=== PATIENT | female | born 1930 | race Caucasian/White ===

== ENCOUNTER 2016-10-28 11:15 | Observation (INO) | payer MEDICARE ==
[~2016-10-28] VITALS: Ht 152.4 cm; Wt 93.1 kg
[~2016-10-28 11:15] MED LIST: ATOR1TAB19 PO; FURO40TA2 PO; INDE80CA PO; NEUR100C PO; PRAD150C PO; PROA1AER INH; REST0.05 OU; TRAZ100T4 PO; TYLE325T5 PO; VALS1TAB46 PO; VITA100066 PO; VITMTA PO; VYTO10TA18 PO; ZOLO100T PO; ZOLO50TA PO
[2016-10-28 11:56] LABS: BASO % 0.3 % (0.0-1.0); EOS # 0.1 K/mm3 (0.0-0.50); EOS % 1.8 % (0.0-3.0); LARGE UNSTAINED CELL # 0.2 K/mm3 (0.0-0.4); LARGE UNSTAINED CELL % 5.7 % (0.0-4.0); MEAN CORPUSCULAR HEMOGLOBIN 32.1 pg (27.0-33.0); MEAN CORPUSCULAR HGB CONC 33.2 g/dl (32.0-36.5); MEAN CORPUSCULAR VOLUME 96.6 fl (80.0-96.0); MONO # 0.6 K/mm3 (0.0-0.8); MONO % 15.8 % (0.0-5.0); NEUTROPHILS # 2.1 K/mm3 (1.8-7.7); NEUTROPHILS % 55.4 % (36.0-66.0); PLATELET COUNT, AUTOMATED 152 k/mm3 (150-450); RED CELL DISTRIBUTION WIDTH 15.2 % (11.5-14.5); WHITE BLOOD COUNT 3.7 K/mm3 (4.0-10.0)
[2016-10-28 11:59] LABS: CALCIUM LEVEL 8.1 MG/DL (8.8-10.2); CREATININE FOR GFR 1.32 MG/DL (0.55-1.02); GLOMERULAR FILTRATION RATE 40.4 (>32)
[2016-10-28 12:42] LABS: INR 1.29
--- NOTE | 2016-10-28 12:56 | REP ---
Clinical: Visual disturbances. Comparison: 09/18/2015 . Findings: Age-related atrophy and microvascular ischemic changes are appreciated. The ventricles and sulci are symmetric. Reid-white differentiation is maintained. There is no evidence for acute intracranial hemorrhage, mass/mass effect, pathology or infarction. No extra-axial fluid collection. Calvarium is intact. Paranasal sinuses and mastoid air cells are clear. Impression: Age related atrophy and microvascular ischemic changes. No acute intracranial hemorrhage, infarction, or mass/mass effect. Signed by Nba Langston MD 10/28/2016 12:47 P
--- NOTE | 2016-10-28 13:02 | REP ---
Clinical: cerebrovascular accident . Comparison: 06/02/2016 . Findings: The mediastinum and cardiac silhouette are stable and within normal limits for portable technique. The lung enriquez are clear without acute consolidation, effusion, or pneumothorax. Skeletal structures are intact. Impression: Normal portable chest x-ray Signed by Nba Langston MD 10/28/2016 12:53 P
[2016-10-28] MEDS ORDERED: BISACODYL 10 MG SUPP PR PRN (13:30)
[2016-10-28] MEDS ORDERED: ONDANSETRON 4MG/2ML VIAL (J2405) IV PRN (13:30)
[2016-10-28] MEDS ORDERED: POTA10CA PO (14:18)
[2016-10-28] MEDS ORDERED: ELIQ2.5T PO (14:18)
[2016-10-28] MEDS ORDERED: ATOR1TAB19 PO (14:18)
[2016-10-28] MEDS ORDERED: CALC600T57 PO (14:19)
[2016-10-28] MEDS ORDERED: PROP80CA PO (14:20)
[2016-10-28] MEDS ORDERED: ALBUTEROL 90 MCG/ACT 8GM HFA INHALER INH PRN (14:30)
--- NOTE | 2016-10-28 14:56 | HPEPDOC ---
Medical History and Physical Date of Admission Oct 28, 2016 at 13:17 History and Physical [facility] CHIEF COMPLAINT: Blurry vision, leg weakness HISTORY OF PRESENT ILLNESS: Patient is a 86-year-old female with medical history significant for atrial fibrillation, hypertension who presents after an event of blurry vision, lower extremity weakness. Patient states that approximately 9:30 this morning while she was awake in the bathroom, using the bathroom her head began to feel awful, her vision went blurry, out of focus and she felt like she could not move her legs. When this occurred she pulled the assist steele located in her bathroom. Her neighbors came over to help her. Her neighbors called her daughter. Her daughter came over in approximately 15 minutes. By the time her daughter was over she says that her symptoms had started to improve. Patient's daughter called the ambulance and she was brought in to emergency department for further evaluation. Patient says that she is continuing to have a minimal amount of blurry vision in that her legs feel back to normal. Patient does have a known history of atrial fibrillation but has never had events like this before. ALLERGIES: Levaquin, Requip, Ramipril PAST MEDICAL HISTORY: Asthma, atrial fibrillation, GI bleed, dyslipidemia, hypertension, neuralgia, sleep apnea with CPAP, hears music in her ears (hears full songs), carpal tunnel syndrome PAST SURGICAL HISTORY: Right knee surgery SOCIAL HISTORY: Patient denies tobacco or recreational drug use. She drinks alcohol 1-2 times per week. She lives in a halfway community but functions independently. CODE STATUS: DNR REVIEW OF SYSTEMS: Constitutional: denies fevers, chills, night sweats, recent weight gain/loss HEENT: Head: Positive for head not feeling right, feeling lightheaded. Eyes: Positive for blurry vision. Ears: Positive for chronic hearing loss. Nose: Positive for postnasal drip, denies sinus pain or pressure, rhinorrhea. Throat: denies sore throat, cough, difficulty swallowing Cardiovascular: denies chest discomfort/pain, palpitations Respiratory: denies shortness of breath, difficulty breathing Gastrointestinal: denies nausea, vomiting, diarrhea, constipation, abdominal pain, melena, hematochezia : denies dysuria, hematuria Musculoskeletal: Positive for resolved lower extremity weakness, pain in her left leg last night which has resolved Neurological: Positive for chronic numbness in her hands (carpal tunnel syndrome ) Lymphatics: denies palpable lymph nodes or swollen glands Integumentary: denies any cuts, rashes, bruises Endocrine: denies polyuria, polydipsia. PHYSICAL EXAMINATION: Vitals: Temperature 97.7, pulse 76, blood pressure 154/71, pulse ox 93% on room air General: Patient awake in stretcher, alert and oriented, verbal and able to answer questions appropriately. She does not appear to be in any acute distress HEENT: Head: normocephalic, atraumatic. Eyes: pupils equally reactive to light , conjunctiva are pink, sclera are nonicteric. Throat: buccal mucosa is pink and moist with no lesions in the oropharynx Respiratory: clear to auscultation bilaterally with no wheezes, rales, or rhonchi. Cardiovascular: Irregularly irregular rate and rhythm. No murmurs, rubs, clicks or gallops Abdomen: soft, nontender, nondistended, no hepatosplenomegaly appreciated. Bowel sounds present. Extremities: 5/5 strength in upper and lower extremities bilaterally, no swelling in either lower extremity bilaterally Neurological: sensation intact and symmetrical in upper and lower extremities bilaterally Integumentary: skin free from rashes, lesions, abrasions Vascular: pulses palpable and symmetrical in upper and lower extremities bilaterally LABORATORY DATA: CBC: White blood cells 3.2, hemoglobin and hematocrit 13.6/41.0, platelets 152 Chemistry: Sodium 141, potassium 4.0, chloride 101, carbon dioxide 32, BUN 31, creatinine 1.3 to, glucose 113, calcium 8.1 Cardiac marker panel: Total creatinine kinase 60, CK-MB 1.0, CK-MB relative index 1.66, troponin I <0.02 Coagulation: PT 16.2, INR 1.29 ELECTROCARDIOGRAM: Atrial fibrillation at rate of 63 bpm RADIOLOGY: Head CT: Age-related atrophy and microvascular ischemic changes, no acute intracranial hemorrhage, infarction or mass effect Chest x-ray: Normal portable chest x-ray ASSESSMENT: Patient is a 86-year-old female, known history of atrial fibrillation who presents with transient ischemic attack. Patient will be admitted for further evaluation, observation. PLAN: #1 transient ischemic attack: Admit patient to PCU under care of Dr. Farah. Orders placed for echocardiogram, carotid ultrasound, brain MRI. Further consult by neurology if MRI shows any abnormalities. Patient will continue on Eliquis 2.5 mg by mouth twice a day. Neuro checks every 6 hours #2: Atrial fibrillation: Order placed for home dose of Eliquis 2.5 mg by mouth twice a day Hypertension: Order placed for home dose of Lasix 40 mg by mouth twice a day, propranolol 80 mg by mouth twice a day, valsartan 80 mg by mouth daily #3: Dyslipemia: Order placed for home dose of Lipitor 10 mg by mouth daily at bedtime #4: Asthma: Order placed for home dose of albuterol 2 puffs 4 times a day when necessary for shortness of breath #5: Neuralgia: Order placed for home dose of gabapentin 100 mg by mouth twice a day #6: Depression/anxiety: Order placed for home dose of Zoloft 150 mg by mouth daily at bedtime #7: Vitamin D deficiency: Order placed for home dose of vitamin D as an units by mouth daily #8: Constipation: Order placed for home dose of bisacodyl 10 mg daily KS when necessary for constipation, Senokot 1 tablet by mouth twice a day #9: Hypokalemia: Order placed for home dose of potassium 10 meqs by mouth daily #10: DVT prophylaxis: Patient will continue on home dose of Eliquis 2.5 mg by mouth twice a day My preceptor for this patient encounter was physically present in the building during the encounter and was fully available. As needed, all aspects of the patient interview, examination, medical decision making process, and medical care plan development were reviewed and approved by the preceptor. Preceptor is aware and concurs with the plan as stated in the body of this note and will attest to such by his/her cosignature. Vital Signs Temperature 97.7, pulse 76, blood pressure 154/71, pulse ox 93% on room air Home Medications Scheduled (Calcium + D3 600-200 mg-Unit) 1 Tab Tab 1 TAB PO DAILY Apixaban Base (Eliquis) 2.5 Mg Tab 2.5 MG PO BID Atorvastatin Calcium (Atorvastatin Calcium) 10 Mg Tab 10 MG PO QHS Cholecalciferol (Vitamin D) 1,000 Unit Tab 1,000 UNIT PO DAILY Furosemide (Furosemide) 40 Mg Tab 40 MG PO BID Gabapentin (Neurontin) 100 Mg Cap 100 MG PO BID Multivitamins *[facility]OCK[facility]* (Thera M Plus *[facility]OCK[facility]*) 1 Tab Tab 1 TAB PO DAILY Potassium Chloride (Klor-Con M10) 10 Meq Tabcr 10 MEQ PO DAILY Propranolol HCl (Propranolol HCl ER) 80 Mg Cap 80 MG PO BID Sertraline Hcl (Zoloft) 100 Mg Tab 150 MG PO QHS Valsartan (Valsartan) 80 Mg Tab 80 MG PO DAILY Scheduled PRN (Restasis) 0.05 % Emu 1 DROP OU BID PRN PRN DRY EYES Albuterol Sulfate (Proair Hfa) 108 Mcg/Act Aer 2 PUFFS INH QID PRN PRN SHORTNESS OF BREATH Allergies Coded Allergies: Ramipril (Verified Allergy, Intermediate, RASH, 12/10/12) Levofloxacin (Unverified Allergy, Mild, Upset Stomach, 04/13/15) Ropinirole (Unverified Allergy, Unknown, 04/13/15) ANGELA WILEY DO Oct 28, 2016 14:56
[2016-10-28 16:00] VITALS: BP 120/65
--- NOTE | 2016-10-28 16:35 | REP ---
Clinical: Transient ischemic attack. Technique: Noncontrast axial T1 and T2-weighted sequences along with sagittal T1 sequence, and diffusion weighted sequence. Comparison: 08/23/2012 Findings: Atrophy is appreciated along with periventricular leukomalacia and chronic microvascular ischemic changes. No acute intracranial hemorrhage, mass/mass effect, or infarction is appreciated. No extra-axial fluid collection is identified. Midbrain and midline structures are intact and symmetric. Orbits are normal. Visualized sinuses are clear. Impression: Age-related atrophy and chronic microvascular ischemic changes. No evidence for acute intracranial infarction, mass effect. Signed by Nba Langston MD 10/28/2016 04:27 P
--- NOTE | 2016-10-28 16:45 | EDDOCDS ---
Physician Documentation [facility] Name: Gifty Rodriguez Age: 86 yrs Sex: Female : 1930 Arrival Date: 10/28/2016 Time: 11:15 Bed 19 Private MD: Disposition: 10/28/16 13:05 Hospitalization ordered by Ana Cristina Lance for Inpatient Admission. Preliminary diagnosis is Transient cerebral ischemic attack, unspecified. - Bed requested for PCU. - Status is Inpatient Admission. ms2 - Condition is Stable. - Problem is an acute exacerbation. - Symptoms are unchanged. Historical: - Allergies: Levaquin; ropinirole; - Home Meds: 1. propranolol 60 mg Oral tab 1 tab 2 times per day (Last dose: 10/28/2016 06:00) 2. Eliquis 2.5 mg oral tab 1 tab 2 times per day (Last dose: 10/28/2016 06:00) 3. gabapentin 100 mg Oral cap one 2x daily (Last dose: 10/28/2016 06:00) 4. Sertraline 150 mg daily (Last dose: 10/28/2016 06:00) 5. Klor-Con 10 10 mEq Oral TbER 1 tab once daily (Last dose: 10/28/2016 06:00) 6. atorvastatin 10 mg oral tab 1 tab once daily (Last dose: 10/28/2016 06:00) 7. furosemide 40 mg Oral tab 1 tab 2 times per day (Last dose: 10/28/2016 06:00) 8. diclofenac -sodium gel 1%---4x daily to right shoulder 9. mutivitamins one daily (Last dose: 10/28/2016 06:00) 10. vitamins D (Last dose: 10/28/2016 06:00) 11. calcium 12. C-PAP ay HS 13. ventolin inhaler 14. restasis - PMHx: Asthma; atrial flutter; gi bleed; Hypercholesterolemia; Hypertension; neuralgia; Sleep Apnea w/ CPAP; - PSHx: right knee; - Social history: Smoking status: Patient states former smoker of tobacco. No barriers to communication noted, The patient speaks fluent [place]. - Family history: Not pertinent. - : The pt / caregiver states he / she is on anticoagulants: Eliquis Home medication list is obtained from the patient. - Exposure Risk Screening:: None identified. Vital Signs: 10/28 11:23 BP 148 / 67; Pulse 84; Resp 20 S; Temp 97.7(O); Pulse Ox 95% on R/A; Weight 89.36 kg / ms2 197.01 lbs; Height 5 ft. (152.40 cm); Pain 0/10; 11:23 BP 112 / 56; Pulse 65; Resp 20 S; Temp 97(T); Pulse Ox 94% on R/A; Pain 0/10; ms2 11:24 BP 148 / 67 (auto/); ms2 11:26 Pulse 62 MON; Resp 20 S; Pulse Ox 93% ; ms2 11:40 BP 141 / 67 (auto/); ms2 11:41 Pulse 68 MON; Resp 20 S; Pulse Ox 95% ; ms2 12:13 BP 154 / 71 Supine (auto/); ms2 12:14 Pulse 68 MON; Resp 20 S; Pulse Ox 93% ; ms2 12:14 BP 129 / 82 Sitting; Pulse 66; Resp 20 S; ms2 12:15 BP 129 / 69 Standing; Pulse 76; Resp 20 S; ms2 12:28 ms2 15:26 BP 104 / 70 (auto/); ms2 15:27 Pulse 68 MON; Resp 20 S; Pulse Ox 93% ; ms2 11:23 Body Mass Index 38.47 (89.36 kg, 152.40 cm) ms2 12:14 pt lightheaded with sitting up ms2 12:28 clinical rehab specialist aware of vs with sitting , etc. ms2 Visual Acuity: 11:57 Left Eye Visual acuity 20/50, ; Right Eye Visual acuity 20/30, ; Both Eyes Visual ms2 acuity 20/25; With Lenses; MDM: 11:23 Visual Acuity ordered. br1 11:35 IV Saline Lock ordered. br1 11:36 CBC with Diff Ordered. EDMS 11:36 Accucheck ordered. ttb 11:36 BMP Ordered. EDMS 12:14 CBC with Diff Reviewed. ke 12:14 BMP Reviewed. ke 12:14 Fingerstick Blood Sugar Reviewed. ke 12:16 CT Head Without Contrast Ordered. EDMS 12:29 PT/INR Ordered. EDMS 12:29 CIP Ordered. EDMS 12:29 Troponin Ordered. EDMS 12:30 Chest, 1 View Ordered. EDMS 12:30 ECG WITH READING ER PHYS+CARDIAG ordered. EDMS 12:52 Financial registration complete. mm15 13:00 PT/INR Reviewed. ke 13:00 CIP Reviewed. ke 13:00 Troponin Reviewed. ke 13:11 NO ADDED SALT+DIET ordered. EDMS 13:20 [facility] Payment Agreement was scanned into [employer] and attached to record. mm15 13:22 PHYSICAL THERAPY EVAL & TREAT ordered. EDMS 13:23 Admission / Observation Status ordered. EDMS 13:23 ECHOCARD,DOPPLER/COLOR FLOW ordered. EDMS 13:23 OTHER CUSTOM DIETS ordered. EDMS 14:18 MRI Brain without Contrast Ordered. EDMS 14:19 Duplex,carotid (complete) Ordered. EDMS Point of Care Testing: Blood Glucose: 11:35 Blood Glucose: 118 mg/dL; ttb 11:35 Blood Glucose: 118 mg/dL; ms2 Ranges: Signatures: Dispatcher [employer] EDTN Ilya Yates,RN RN ms2 José Miguel Kathleen, GAMING DEPARTMENT HEAD GAMING DEPARTMENT HEAD Bj Almaraz MD MD br1 Concepcion Gama RN RN ttb Gwen Garcia mm15 Veronica Beckett RN RN kaa The chart was reviewed and I authenticate all verbal orders and agree with the evaluation and treatment provided.Attachments: 13:20 [facility] Payment Agreement mm15 MTDD
--- NOTE | 2016-10-28 16:45 | EDDOCDS ---
Nurse's Notes [facility] Name: Gifty Rodriguez Age: 86 yrs Sex: Female : 1930 Arrival Date: 10/28/2016 Time: 11:15 Bed 19 Private MD: Diagnosis: Transient cerebral ischemic attack, unspecified Presentation: 10/28 11:19 Presenting complaint: EMS states: blurred vision since this am and head felt fuzzy ms2 --lasted for period of time---couldn't focus---and still can't per pt---no headache. Adult Sepsis Screening: The patient does not have new or worsening altered mentation. Patient's respiratory rate is less than 22. Systolic blood pressure is greater than 100. Patient has a qSOFA score of 0- Negative Sepsis Screen. Suicide/Homicide risk assessment- the patient denies having any suicidal and/or homicidal ideations and does not present with any other emotional, behavioral or mental health complaints. Status: Patient is not a customer service agent or dependent. Transition of care: patient was not received from another setting of care. 11:19 Acuity: ORALIA Level 3 ms2 11:19 Method Of Arrival: Ambulance ms2 11:25 Presenting complaint:. ms2 11:36 Presenting complaint: per daughter---when she got there pt unable to express self for a ms2 few seconds--seemed to daughter longer she was in the chair the more alert she became---no sickness lately. Triage Assessment: 11:30 General: Appears in no apparent distress, Behavior is cooperative, pleasant, daughtere ms2 with pt. Pain: Denies pain. The patient is triaged at the bedside. See Assessment in Nurses Notes section of ED record. Neurological: Level of Consciousness is awake, alert, obeys commands, Oriented to person, place, time. Respiratory: No deficits noted. Airway is patent Respiratory effort is even, unlabored, Respiratory pattern is regular, symmetrical. GI: Abdomen is non- distended obese. Derm: Skin is pink, warm & dry. Musculoskeletal: Range of motion intact in all extremities. Historical: - Allergies: Levaquin; ropinirole; - Home Meds: 1. propranolol 60 mg Oral tab 1 tab 2 times per day (Last dose: 10/28/2016 06:00) 2. Eliquis 2.5 mg oral tab 1 tab 2 times per day (Last dose: 10/28/2016 06:00) 3. gabapentin 100 mg Oral cap one 2x daily (Last dose: 10/28/2016 06:00) 4. Sertraline 150 mg daily (Last dose: 10/28/2016 06:00) 5. Klor-Con 10 10 mEq Oral TbER 1 tab once daily (Last dose: 10/28/2016 06:00) 6. atorvastatin 10 mg oral tab 1 tab once daily (Last dose: 10/28/2016 06:00) 7. furosemide 40 mg Oral tab 1 tab 2 times per day (Last dose: 10/28/2016 06:00) 8. diclofenac -sodium gel 1%---4x daily to right shoulder 9. mutivitamins one daily (Last dose: 10/28/2016 06:00) 10. vitamins D (Last dose: 10/28/2016 06:00) 11. calcium 12. C-PAP ay HS 13. ventolin inhaler 14. restasis - PMHx: Asthma; atrial flutter; gi bleed; Hypercholesterolemia; Hypertension; neuralgia; Sleep Apnea w/ CPAP; - PSHx: right knee; - Social history: Smoking status: Patient states former smoker of tobacco. No barriers to communication noted, The patient speaks fluent Kazakh. - Family history: Not pertinent. - : The pt / caregiver states he / she is on anticoagulants: Eliquis Home medication list is obtained from the patient. - Exposure Risk Screening:: None identified. Screenin:32 Screening information is obtained from the patient, family members. Fall risk: At risk ms2 due to age, cane and walker outside of apartment. Assistance ADL's: Requires assistance with housework, assistance is provided by cleaning lady once monthly. Abuse/DV Screen: The patient / caregiver reports he/she is: not in a situation that causes fear, pain or injury. Nutritional screening: low NA and fluid restriction. Advance Directives: Currently, there is a health care proxy, daughter- eron finley. There is an active DNR order but there is no copy available at this time. There is no living will. There is an active Power of Oim Architect, yes --see above. Advance directive information does not know if advance directives have been placed in a prior [facility] medical record. Further advance directive information is declined. home support is adequate. Assessment: 11:31 General: see triage assessment. ms2 12:30 General: Appears in no apparent distress, comfortable, daughter with pt. Neurological: ms2 No deficits noted. Cardiovascular:. Respiratory: No deficits noted. Derm: Skin is pink, warm & dry. 12:55 General: LOOKING AT BACK RECORDS BY ADMISSION PT DOES HAVE A HCP AND LW COMBINED NO ms2 SEPARATE DNR---DAUGHTER AWARE. 13:24 General: resident in to see pt. ms2 14:00 General: Appears in no apparent distress, comfortable, Behavior is cooperative. ms2 Neurological: No deficits noted. Cardiovascular: Rhythm is atrial flutter. Respiratory: No deficits noted. Derm: Skin is pink, warm & dry. 15:36 General: Appears in no apparent distress, comfortable, Behavior is cooperative. Pain: ms2 Denies pain. Neurological: Level of Consciousness is awake, alert, obeys commands. Cardiovascular: Rhythm is atrial flutter. Respiratory: Respiratory effort is even, unlabored. Derm: Skin is. 16:39 Adult Sepsis Screening: The patient does not have new or worsening altered mentation. ms2 Patient's respiratory rate is less than 22. Systolic blood pressure is greater than 100. Patient has a qSOFA score of 0- Negative Sepsis Screen. General: Appears in no apparent distress, comfortable, Behavior is cooperative, pleasant. General: Appears in no apparent distress, comfortable. Pain: Denies pain. Neurological: Level of Consciousness is awake, alert, obeys commands. Cardiovascular: Rhythm is atrial flutter. Respiratory: Airway is patent Respiratory effort is even, unlabored, Respiratory pattern is regular, symmetrical. GI: Abdomen is non- distended obese. Derm: Skin is pink, warm & dry. Musculoskeletal: Range of motion intact in all extremities. Vital Signs: 11:23 BP 148 / 67; Pulse 84; Resp 20 S; Temp 97.7(O); Pulse Ox 95% on R/A; Weight 89.36 kg; ms2 Height 5 ft. (152.40 cm); Pain 0/10; 11:23 BP 112 / 56; Pulse 65; Resp 20 S; Temp 97(T); Pulse Ox 94% on R/A; Pain 0/10; ms2 11:24 BP 148 / 67 (auto/); ms2 11:26 Pulse 62 MON; Resp 20 S; Pulse Ox 93% ; ms2 11:40 BP 141 / 67 (auto/); ms2 11:41 Pulse 68 MON; Resp 20 S; Pulse Ox 95% ; ms2 12:13 BP 154 / 71 Supine (auto/); ms2 12:14 Pulse 68 MON; Resp 20 S; Pulse Ox 93% ; ms2 12:14 BP 129 / 82 Sitting; Pulse 66; Resp 20 S; ms2 12:15 BP 129 / 69 Standing; Pulse 76; Resp 20 S; ms2 12:28 ms2 15:26 BP 104 / 70 (auto/); ms2 15:27 Pulse 68 MON; Resp 20 S; Pulse Ox 93% ; ms2 11:23 Body Mass Index 38.47 (89.36 kg, 152.40 cm) ms2 12:14 pt lightheaded with sitting up ms2 12:28 manager psychology aware of vs with sitting , etc. ms2 Vitals: 11:23 Log In Time N/A - ambulance arrival. ms2 Visual Acuity: 11:57 Left Eye Visual acuity 20/50, ; Right Eye Visual acuity 20/30, ; Both Eyes Visual ms2 acuity 20/25; With Lenses; ED Course: 11:17 Patient visited by Gissel Zapata, Naval Marine Engineer. deg 11:17 Ilya Yates,RN is Primary Nurse. deg 11:17 Patient moved to Waiting deg 11:17 Patient moved to 19 deg 11:19 Patient visited by Ilya Yates RN. ms2 11:23 Triage Initiated ms2 11:34 The patient / caregiver is instructed regarding the plan of care and ED course. Cardiac ms2 monitor on. Pulse ox on. NIBP on. 11:35 Inserted saline lock: 20 gauge in right antecubital area The patient tolerated the ms2 procedure well. No procedures done that require assistance. 11:37 BMP Sent. ttb 11:37 CBC with Diff Sent. ttb 11:57 Patient visited by Ilya Yates,TASHA. ms2 12:11 José Miguel Kathleen FNP is PHCP. ke 12:12 Patient visited by José Miguel Kathleen FNP. ke 12:12 Patient visited by José Miguel Kathleen FNP. ke 12:21 Patient visited by Ilya Yates,TASHA. ms2 12:31 The patient / caregiver is instructed regarding the plan of care and ED course. Cardiac ms2 monitor on. Pulse ox on. NIBP on. 12:31 IV is intact, is free of redness or swelling. ms2 12:31 Troponin Sent. ms2 12:31 CIP Sent. ms2 12:31 PT/INR Sent. ms2 12:51 Patient visited by José Miguel Kathleen FNP. ke 13:00 EKG done. (by ED staff). Reviewed by José Miguel BOLAND. ttb 13:05 NatalioAna Cristina is Hospitalizing Provider. ke 13:07 CT Head Without Contrast Returned. EDMS 13:07 Chest, 1 View Returned. EDMS 13:20 [facility] Payment Agreement was scanned into [employer] and attached to record. mm15 13:24 Patient visited by Ilya Yates RN. ms2 14:00 The patient / caregiver is instructed regarding the plan of care and ED course. Cardiac ms2 monitor on. Pulse ox on. NIBP on. Diet: Tolerated well. 14:00 IV is intact, is free of redness or swelling. ms2 15:37 The patient / caregiver is instructed regarding the plan of care and ED course. dc'd to ms2 go to MRI. 15:37 IV is intact, is free of redness or swelling. ms2 16:40 The patient / caregiver is instructed regarding the plan of care and ED course. Cardiac ms2 monitor on. Pulse ox on. NIBP on. 16:40 IV is intact, is free of redness or swelling. ms2 Point of Care Testing: Blood Glucose: 11:35 Blood Glucose: 118 mg/dL; ttb 11:35 Blood Glucose: 118 mg/dL; ms2 Ranges: Intake: 15:35 PO: 113.00ml (Milk); Total: 113.00ml. ms2 12:14 up to commode to void --required assistance ms2 15:35 up to BR to void and had BM ms2 Output: 12:14 Urine: 300.00ml (Voided); Total: 300.00ml. ms2 12:14 up to commode to void --required assistance ms2 15:35 up to BR to void and had BM ms2 Order Results: Lab Order: CBC with Diff; SPEC'M 10/28/16 11:33 Test: WHITE BLOOD COUNT; Value: 3.7; Range: 4.0-10.0; Abnormal: Below low normal; Units: K/mm3; Status: F Test: RED BLOOD COUNT; Value: 4.24; Range: 4.00-5.40; Units: M/mm3; Status: F Test: HEMOGLOBIN; Value: 13.6; Range: 12.0-16.0; Units: g/dl; Status: F Test: HEMATOCRIT; Value: 41.0; Range: 36.0-47.0; Units: %; Status: F Test: MEAN CORPUSCULAR VOLUME; Value: 96.6; Range: 80.0-96.0; Abnormal: Above high normal; Units: fl; Status: F Test: MEAN CORPUSCULAR HEMOGLOBIN; Value: 32.1; Range: 27.0-33.0; Units: pg; Status: F Test: MEAN CORPUSCULAR HGB CONC; Value: 33.2; Range: 32.0-36.5; Units: g/dl; Status: F Test: RED CELL DISTRIBUTION WIDTH; Value: 15.2; Range: 11.5-14.5; Abnormal: Above high normal; Units: %; Status: F Test: PLATELET COUNT, AUTOMATED; Value: 152; Range: 150-450; Units: k/mm3; Status: F Test: NEUTROPHILS %; Value: 55.4; Range: 36.0-66.0; Units: %; Status: F Test: LYMPH %; Value: 21.0; Range: 24.0-44.0; Abnormal: Below low normal; Units: %; Status: F Test: MONO %; Value: 15.8; Range: 0.0-5.0; Abnormal: Above high normal; Units: %; Status: F Test: EOS %; Value: 1.8; Range: 0.0-3.0; Units: %; Status: F Test: BASO %; Value: 0.3; Range: 0.0-1.0; Units: %; Status: F Test: LARGE UNSTAINED CELL %; Value: 5.7; Range: 0.0-4.0; Abnormal: Above high normal; Units: %; Status: F Test: NEUTROPHILS #; Value: 2.1; Range: 1.8-7.7; Units: K/mm3; Status: F Test: LYMPH #; Value: 1.0; Range: 1.5-4.5; Abnormal: Below low normal; Units: K/mm3; Status: F Test: MONO #; Value: 0.6; Range: 0.0-0.8; Units: K/mm3; Status: F Test: EOS #; Value: 0.1; Range: 0.0-0.50; Units: K/mm3; Status: F Test: BASO #; Value: 0.0; Range: 0.0-0.2; Units: K/mm3; Status: F Test: LARGE UNSTAINED CELL #; Value: 0.2; Range: 0.0-0.4; Units: K/mm3; Status: F Lab Order: BMP; SPEC'M 10/28/16 11:33 Test: GLUCOSE, FASTING; Value: 113; Range: 83-110; Abnormal: Above high normal; Units: MG/DL; Status: F Test: BLOOD UREA NITROGEN; Value: 31; Range: 7-18; Abnormal: Above high normal; Units: MG/DL; Status: F Test: CREATININE FOR GFR; Value: 1.32; Range: 0.55-1.02; Abnormal: Above high normal; Units: MG/DL; Status: F Test: GLOMERULAR FILTRATION RATE; Value: 40.4; Range: >32; Status: F Test: SODIUM LEVEL; Value: 141; Range: 136-145; Units: MEQ/L; Status: F Test: POTASSIUM SERUM; Value: 4.0; Range: 3.5-5.1; Units: MEQ/L; Status: F Test: CHLORIDE LEVEL; Value: 101; Range: 98-107; Units: MEQ/L; Status: F Test: CARBON DIOXIDE LEVEL; Value: 32; Range: 21-32; Units: MEQ/L; Status: F Test: ANION GAP; Value: 8; Range: 8-16; Units: MEQ/L; Status: F Test: CALCIUM LEVEL; Value: 8.1; Range: 8.8-10.2; Abnormal: Below low normal; Units: MG/DL; Status: F Test Note: ; Units are mL/min/1.73 m2 Chronic Kidney Disease Staging per NKF: Stage I & II GFR >=60 Normal to Mildly Decreased Stage III GFR 30-59 Moderately Decreased Stage IV GFR 15-29 Severely Decreased Stage V GFR <15 Very Little GFR Left ESRD GFR <15 on SPINDLE PLUMBER Lab Order: Fingerstick Blood Sugar; SPEC'M 10/28/16 11:24 Test: BEDSIDE GLUCOSE; Value: 118; Range: 83-110; Abnormal: Above high normal; Units: MG/DL; Status: F Test Note: ; RN Notified Lab Order: PT/INR; [facility] 10/28/16 11:33 Test: PROTHROMBIN TIME; Value: 16.2; Range: 12.3-14.5; Abnormal: Above high normal; Units: SECONDS; Status: F Test: INR; Value: 1.29; Status: F Test Note: ; THERAPUTIC HUMAN INR VALUES INDICATIONS NORMAL RANGES PROPHYLAXIS/TREATMENT OF: VENOUS THROMBOSIS 2.0-3.0 PULMONARY EMBOLISM 2.0-3.0 PREVENTION OF SYSTEMIC EMBOLISM FROM: TISSUE HEART VALVES 2.0-3.0 ACUTE MYOCARDIAL INFARCTION 2.0-3.0 VALVULAR HEART DISEASE 2.0-3.0 ATRIAL FIBRILLATION 2.0-3.0 MECHANICAL VALVES(HIGH RISK) 2.5-3.5 RECURRENT MYOCARDIAL INFARCTION 2.5-3.5 Lab Order: CIP; [facility] 10/28/16 11:33 Test: CPK CREATINE PHOSPHOKINASE; Value: 60; Range: 26-192; Units: U/L; Status: F Test: CK-MB VALUE MASS; Value: 1.0; Range: 0.0-3.6; Units: NG/ML; Status: F Test: MB/CK RELATIVE INDEX; Value: 1.66; Range: < OR =4; Status: F Test Note: ; DIAGNOSIS CRITERIA MMB ng/ml Relative Index (RI) NON-AMI < or = 5 N/A REID ZONE > 5 < or = 4 AMI > 5 > 4 Lab Order: Troponin; [facility] 10/28/16 11:33 Test: TROPONIN I; Value: < 0.02; Range: < 0.10; Units: NG/ML; Status: F Test Note: ; Troponin I Reference Interval for Solar Flow-Through LOCI: 99th Percentile= 0.00-0.045 ng/ml Risk Stratification: <= 0.10 ng/ml Decreased Risk for Adverse Clinical Events. 0.10-1.50 ng/ml Increased Risk for Adverse Clinical Events. Evaluation of additional criterion and/or repeat testing in 2-6 hours is suggested to rule out myocardial damage. >= 1.50 ng/ml Indicative of Myocardial Injury. Radiology Order: CT Head Without Contrast Test: CT Head Without Contrast REASON FOR EXAMINATION: vision change; Clinical: Visual disturbances.; ; Comparison: 09/18/2015 .; ; Findings:; Age-related atrophy and microvascular ischemic changes are appreciated. The; ventricles and sulci are symmetric. Reid-white differentiation is maintained.; There is no evidence for acute intracranial hemorrhage, mass/mass effect,; pathology or infarction. No extra-axial fluid collection. Calvarium is intact.; Paranasal sinuses and mastoid air cells are clear.; ; Impression:; Age related atrophy and microvascular ischemic changes.; No acute intracranial hemorrhage, infarction, or mass/mass effect.; ; ; Signed by; Nba Langston MD 10/28/2016 12:47 P; Radiology Order: Chest, 1 View Test: Chest, 1 View REASON FOR EXAMINATION: admit; Clinical: cerebrovascular accident .; ; Comparison: 06/02/2016 .; ; Findings:; The mediastinum and cardiac silhouette are stable and within normal limits for; portable technique. The lung enriquez are clear without acute consolidation,; effusion, or pneumothorax. Skeletal structures are intact.; ; Impression:; Normal portable chest x-ray; ; ; Signed by; Nba Langston MD 10/28/2016 12:53 P; Outcome: 13:05 Decision to Hospitalize by Provider. ke 15:38 Discharge Assessment: patient administered narcotics - no. The following High Risk ms2 Discharge criteria are identified: None. 15:39 CT Study completed. ms2 16:40 Admitted to PCU accompanied by nurse, accompanied by tech, via stretcher, on monitor, ms2 with chart. Condition: stable. Property :Personal belongings accompany Pt. 16:45 Patient left the ED. ms2 Signatures: Dispatcher [employer] EDMS Gissel Zapata, Naval Marine Engineer Unit deg Ilya Yates RN RN ms2 José Miguel Kathleen FNP FNP ke Conner, Teresa, RN RN darrylb Gwen Garcia mm15 Corrections: (The following items were deleted from the chart) 11:27 11:23 Resp 20bpm; Spontaneous; Temp 97.7F Oral; ms2 ms2 12:25 12:13 BP 154 / 71 Auto; ms2 ms2 12:30 12:21 Urine 300, (Voided), Output Total 300; Note:up to commode to void --required ms2 assistance---pt lightheaded momentarily with standing. ms2 12:30 12:14 BP 129 / 82 Sitting; Pulse 66bpm; Resp 20bpm; Spontaneous; ms2 ms2 16:39 11:23 BP 148 / 67; Pulse 84bpm; Resp 20bpm; Spontaneous; Pulse Ox 95% RA; Temp 97.7F ms2 Oral; 2.27 kg Reported; Height 1 ft. 97 in. Reported; BMI: 0.30; Pain 0/10; ms2 MTDD
--- NOTE | 2016-10-28 16:50 | REP ---
Clinical: Transient ischemic attack. Technique: Reid scale and color Doppler evaluation using linear high frequency transducer Findings: Two-dimensional reid scale and color images demonstrate normal arterial lumen with laminar flow with no appreciable narrowing. Color Doppler interrogation demonstrates normal arterial wave patterns and velocities with mild spectral broadening. Normal flow direction is appreciated in the left vertebral artery. RIGHT (cm/s) LEFT (cm/s) ICA peak systolic velocity 32.3 51.5 ICA diastolic velocity 5.7 16.0 ECA peak systolic velocity 95.7 78.2 CCA peak systolic velocity 78.0 75.3 ICA/CCA ratio 0.4 0.7 Impression: No hemodynamically significant areas of narrowing or stenosis appreciated. Based on set standards narrowing falls within the less than 50% range. Signed by Nba Langston MD 10/28/2016 04:42 P
[2016-10-28] MEDS: FUROSEMIDE 40 MG TAB PO SCH (17:48)
--- NOTE | 2016-10-28 18:08 | ECGEPIP ---
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 Electronically Signed On 10-28-2016 18:08:29 EST by Omid Yang
[2016-10-28 20:00] VITALS: BP 124/61
[2016-10-28] MEDS: APIXABAN 2.5 MG TAB (ELIQUIS) PO SCH (20:34)
[2016-10-28] MEDS: GABAPENTIN 100 MG CAP PO SCH (20:34)
[2016-10-28] MEDS: PROPRANOLOL 80 MG LA CAP PO SCH (20:34)
[2016-10-28] MEDS: SERTRALINE HCL 50 MG TAB PO SCH (20:34)
[2016-10-28] MEDS: ATORVASTATIN 10 MG TAB PO SCH (20:34)
[2016-10-28] MEDS: SENOKOT S TAB PO SCH (21:00)
[2016-10-29] VITALS (8 sets, daily range): BP systolic 108–175; BP diastolic 53–87
[2016-10-29 05:40] LABS: MEAN CORPUSCULAR HGB CONC 33.6 g/dl (32.0-36.5); MEAN CORPUSCULAR VOLUME 95.5 fl (80.0-96.0); PLATELET COUNT, AUTOMATED 138 k/mm3 (150-450); RED CELL DISTRIBUTION WIDTH 15.2 % (11.5-14.5); WHITE BLOOD COUNT 4.1 K/mm3 (4.0-10.0)
[2016-10-29 05:45] LABS: CREATININE FOR GFR 1.3 MG/DL (0.55-1.02); GLOMERULAR FILTRATION RATE 41.2 (>32); POTASSIUM SERUM 3.6 MEQ/L (3.5-5.1)
[2016-10-29 06:39] LABS: BASOPHILS 1 % (0-4); EOSINOPHILS 3 % (0-5)
[2016-10-29 06:40] LABS: GIANT PLATELETS 1+
[2016-10-29] MEDS: GABAPENTIN 100 MG CAP PO SCH ×2 (08:27→20:33)
[2016-10-29] MEDS: POTASSIUM CHLORIDE 10 MEQ SR TABLET PO SCH (08:27)
[2016-10-29] MEDS: SENOKOT S TAB PO SCH ×2 (08:27→20:33)
[2016-10-29] MEDS: VITAMIN D 1,000 INTERNATIONAL UNITS TABLET PO SCH (08:27)
[2016-10-29] MEDS: MULTIVITAMINS/MINERALS THERAP 1 TAB PO SCH (08:27)
[2016-10-29] MEDS: APIXABAN 2.5 MG TAB (ELIQUIS) PO SCH ×2 (08:27→20:33)
[2016-10-29] MEDS: VALSARTAN 80 MG TAB (DIOVAN) PO SCH (08:32)
[2016-10-29] MEDS: FUROSEMIDE 40 MG TAB PO SCH ×2 (08:33→16:21)
[2016-10-29] MEDS: PROPRANOLOL 80 MG LA CAP PO SCH ×2 (08:33→20:33)
--- NOTE | 2016-10-29 13:46 | IPNPDOC ---
Text Note Date of Service The patient was seen on 10/29/16. NOTE Subjective: Feeling well. No recurrent episodes. No CP/Palpitations/SOB. Objective: Vitals: (see below) General: No acute distress, laying comfortably in bed. HEENT: Moist mucous membranes. Neck: No JVD or lymphadenopathy Cardiac: RRR, No murmurs Pulm: Diminished breath sounds b/l bases. No wheezing, rhonchi Abd: NT/ND + BS Ext: No edema or cyanosis Neuro: Strength 5/5 BUE and BLE. CN 2-12 intact. Negative pronator drift. Negative Babinski. Baseline essential tremor. Labs (see below) Images: MRI Brain 10/29/16 Impression: Age-related atrophy and chronic microvascular ischemic changes. No evidence for acute intracranial infarction, mass effect. LE U/S 10/28/16 Impression: No hemodynamically significant areas of narrowing or stenosis appreciated. Based on set standards narrowing falls within the less than 50% range. Assessment/Plan 1. Pre-syncope - while sitting on the toilet. ? Vasovagal. Will maintain on telemetry. Echocardiogram pending. CE negative. Check orthostatics as pt is on lasix. 2. AF on Eliquis, follows with Dr. Randall 3. HLD on statin 4. Asthma on nebs 5. Neuropathy on gabapentin 6. Depression/axiety - cont home meds DVT prophy: On Eliquis PT eval Plan to d/c in the next 24 -48 hrs pending echocardiogram. VS,Fishbone, I+O VS, Fishbone, I+O Laboratory Tests 10/29/16 05:10 Calcium Level 8.0 L, Red Blood Count 4.11, Mean Corpuscular Volume 95.5, Mean Corpuscular Hemoglobin 32.0, Mean Corpuscular Hemoglobin Concent 33.6, Red Cell Distribution Width 15.2 H, Neutrophils (%) (Auto) , Lymphocytes (%) (Auto) , Monocytes (%) (Auto) , Eosinophils (%) (Auto) , Basophils (%) (Auto) , Neutrophils # (Auto) , Lymphocytes # (Auto) , Monocytes # (Auto) , Eosinophils # (Auto) , Basophils # (Auto) Vital Signs Date Time Temp Pulse Resp B/P Pulse Ox O2 Delivery O2 Flow Rate FiO2 10/29/16 12:00 97.1 59 18 138/65 94 Room Air I&O- Last 24 Hours up to 6 AM 10/29/16 06:00 Intake Total 420 ml Output Total 1300 ml Balance -880 ml MELVINA GUILLORY MD Oct 29, 2016 13:46
[2016-10-29] MEDS: SERTRALINE HCL 50 MG TAB PO SCH (20:32)
[2016-10-29] MEDS: ATORVASTATIN 10 MG TAB PO SCH (20:33)
[2016-10-30 04:47] VITALS: BP 148/71
[2016-10-30 05:37] LABS: MEAN CORPUSCULAR HEMOGLOBIN 30.3 pg (27.0-33.0); MEAN CORPUSCULAR HGB CONC 31.8 g/dl (32.0-36.5); MEAN CORPUSCULAR VOLUME 95.1 fl (80.0-96.0); PLATELET COUNT, AUTOMATED 151 k/mm3 (150-450); WHITE BLOOD COUNT 4.1 K/mm3 (4.0-10.0)
[2016-10-30 05:56] LABS: CALCIUM LEVEL 8.2 MG/DL (8.8-10.2); CREATININE FOR GFR 1.22 MG/DL (0.55-1.02); GLOMERULAR FILTRATION RATE 44.3 (>32); POTASSIUM SERUM 4.2 MEQ/L (3.5-5.1)
[2016-10-30 06:25] LABS: EOSINOPHILS 1 % (0-5)
[2016-10-30 06:26] LABS: ANISOCYTOSIS 1+
[2016-10-30 08:00] VITALS: BP 120/56
[2016-10-30] MEDS: POTASSIUM CHLORIDE 10 MEQ SR TABLET PO SCH (08:06)
[2016-10-30] MEDS: APIXABAN 2.5 MG TAB (ELIQUIS) PO SCH (08:06)
[2016-10-30] MEDS: VITAMIN D 1,000 INTERNATIONAL UNITS TABLET PO SCH (08:07)
[2016-10-30] MEDS: GABAPENTIN 100 MG CAP PO SCH (08:07)
[2016-10-30] MEDS: PROPRANOLOL 80 MG LA CAP PO SCH (08:07)
[2016-10-30] MEDS: MULTIVITAMINS/MINERALS THERAP 1 TAB PO SCH (08:07)
[2016-10-30] MEDS: SENOKOT S TAB PO SCH (08:07)
[2016-10-30] MEDS: VALSARTAN 80 MG TAB (DIOVAN) PO SCH (08:09)
[2016-10-30] MEDS: FUROSEMIDE 40 MG TAB PO SCH (08:10)
--- NOTE | 2016-10-30 13:36 | DS.PDOC ---
Discharge Summary General Date of Admission Oct 28, 2016 at 13:17 Date of Discharge Oct 30, 2016 at 13:00 Attending Physician: MELVINA GUILLORY MD Discharge Summary PROCEDURES PERFORMED DURING STAY: None. COMPLICATIONS/CHIEF COMPLAINT: Presyncope DISCHARGE/SECONDARY DIAGNOSES: 1. Presyncope likely vasovagal 2. Atrial Fibrillation on Eliquis 3. Hyperlipidemia 4. Asthma 5. Peripheral Neuropathy 6. Depression/Anxiety HISTORY OF PRESENT ILLNESS/HOSPITAL COURSE: This 86-year-old female past medical history of atrial fibrillation on Eliquis, hyperlipidemia, asthma who presents with presyncopal episode. Patient stated that she sitting in the bathroom using the toilet, when she had a "weird feeling" with lightheadedness and blurred vision, fall by generalized weakness which was short-lived. Patient did not have loss of consciousness. No tongue trauma, urinary or fecal incontinence. No focal weakness, slurred speech , or facial droop. Patient was observed in telemetry with no acute changes noted. Patient does have atrial fibrillation however is rate controlled. Patient's orthostatics was negative. MRI of the brain is negative for acute changes. I have spoken to Dr. Randall who will arrange for the patient to have an echocardiogram in his office. Patient did well with physical therapy. Patient's hemodynamically stable and ready for discharge home with family. DISCHARGE MEDICATIONS: Please see below. ALLERGIES: Please see below. PHYSICAL EXAMINATION ON DISCHARGE: Vitals: (see below) General: No acute distress, laying comfortably in bed. HEENT: Moist mucous membranes. Neck: No JVD or lymphadenopathy Cardiac: RRR, No murmurs Pulm: Diminished breath sounds b/l bases. No wheezing, rhonchi Abd: NT/ND + BS Ext: No edema or cyanosis Neuro: Strength 5/5 BUE and BLE. CN 2-12 intact. Negative pronator drift. Negative Babinski. Baseline essential tremor. LABORATORY DATA: Please see below. IMAGING: Images: MRI Brain 10/29/16 Impression: Age-related atrophy and chronic microvascular ischemic changes. No evidence for acute intracranial infarction, mass effect. LE U/S 10/28/16 Impression: No hemodynamically significant areas of narrowing or stenosis appreciated. Based on set standards narrowing falls within the less than 50% range. VTE Prophylaxis ordered?: Y DISCHARGE CONDITION: Stable. DISPOSITION: D/c to home with family ACTIVITY: As tolerated DIET: Low Na DISCHARGE PLAN AND INSTRUCTIONS: 1. F/u with PCP and Dr. Randall in 1-2 weeks. I have spoken to Dr. Randall, who will arrange for the pt to get an echocardiogram in his office. TIME SPENT ON DISCHARGE: Greater than 30 minutes. Vital Signs/I&Os Vital Signs Date Time Temp Pulse Resp B/P Pulse Ox O2 Delivery O2 Flow Rate FiO2 10/30/16 08:00 96.8 70 18 120/56 93 Room Air I&O- Last 24 Hours up to 6 AM 10/30/16 05:59 Intake Total 1110 ml Output Total 1700 ml Balance -590 ml Laboratory Data Labs 24H Laboratory Tests 2 10/30/16 05:20: Anion Gap 7L, Anisocytosis 1+, Atypical Lymphocytes 3, White Blood Count 4.1, Red Blood Count 4.49, Hemoglobin 13.6, Hematocrit 42.7, Mean Corpuscular Volume 95.1, Mean Corpuscular Hemoglobin 30.3, Mean Corpuscular Hemoglobin Concent 31.8L, Red Cell Distribution Width 15.0H, Platelet Count 151, Neutrophils (%) ( Auto) , Lymphocytes (%) (Auto) , Monocytes (%) (Auto) , Eosinophils (%) (Auto) , Basophils (%) (Auto) , Neutrophils # (Auto) , Lymphocytes # (Auto) , Monocytes # (Auto) , Eosinophils # (Auto) , Basophils # (Auto) , Blood Urea Nitrogen 26H, Creatinine 1.22H, Sodium Level 142, Potassium Level 4.2, Chloride Level 105, Carbon Dioxide Level 30, Calcium Level 8.2L, Eosinophils (Manual) 1, Glomerular Filtration Rate 44.3, Large Unclassified Cells # , Large Unclassified Cells % , Lymphocytes (Manual) 26, Monocytes (Manual) 14H, Neutrophils 56, Platelet Estimate NORMAL CBC/BMP Laboratory Tests 10/30/16 05:20 Calcium Level 8.2 L, Red Blood Count 4.49, Mean Corpuscular Volume 95.1, Mean Corpuscular Hemoglobin 30.3, Mean Corpuscular Hemoglobin Concent 31.8 L, Red Cell Distribution Width 15.0 H, Neutrophils (%) (Auto) , Lymphocytes (%) (Auto) , Monocytes (%) (Auto) , Eosinophils (%) (Auto) , Basophils (%) (Auto) , Neutrophils # (Auto) , Lymphocytes # (Auto) , Monocytes # (Auto) , Eosinophils # (Auto) , Basophils # (Auto) Medications Scheduled (Calcium + D3 600-200 mg-Unit) 1 Tab Tab 1 TAB PO DAILY (Reported) Apixaban Base (Eliquis) 2.5 Mg Tab 2.5 MG PO BID (Reported) Atorvastatin Calcium (Atorvastatin Calcium) 10 Mg Tab 10 MG PO QHS (Reported) Cholecalciferol (Vitamin D) 1,000 Unit Tab 1,000 UNIT PO DAILY (Reported) Furosemide (Furosemide) 40 Mg Tab 40 MG PO BID (Reported) Gabapentin (Neurontin) 100 Mg Cap 100 MG PO BID (Reported) Multivitamins *[place] STOCKED* (Thera M Plus *[place] STOCKED*) 1 Tab Tab 1 TAB PO DAILY (Reported) Potassium Chloride (Klor-Con M10) 10 Meq Tabcr 10 MEQ PO DAILY (Reported) Propranolol HCl (Propranolol HCl ER) 80 Mg Cap 80 MG PO BID (Reported) Sertraline Hcl (Zoloft) 100 Mg Tab 150 MG PO QHS (Reported) Valsartan (Valsartan) 80 Mg Tab 80 MG PO DAILY (Reported) Scheduled PRN (Restasis) 0.05 % Emu 1 DROP OU BID PRN PRN DRY EYES (Reported) Albuterol Sulfate (Proair Hfa) 108 Mcg/Act Aer 2 PUFFS INH QID PRN PRN SHORTNESS OF BREATH (Reported) Allergies Coded Allergies: Ramipril (Verified Allergy, Intermediate, RASH, 12/10/12) Levofloxacin (Unverified Allergy, Mild, Upset Stomach, 04/13/15) Ropinirole (Unverified Allergy, Unknown, 04/13/15) MELVINA GUILLORY MD Oct 30, 2016 13:36
--- NOTE | 2016-10-30 17:46 | EDDOCDS ---
Nurse's Notes [facility] Name: Gifty Rodriguez Age: 86 yrs Sex: Female : 1930 Arrival Date: 10/28/2016 Time: 11:15 Bed 19 Private MD: Diagnosis: Transient cerebral ischemic attack, unspecified Presentation: 10/28 11:19 Presenting complaint: EMS states: blurred vision since this am and head felt fuzzy ms2 --lasted for period of time---couldn't focus---and still can't per pt---no headache. Adult Sepsis Screening: The patient does not have new or worsening altered mentation. Patient's respiratory rate is less than 22. Systolic blood pressure is greater than 100. Patient has a qSOFA score of 0- Negative Sepsis Screen. Suicide/Homicide risk assessment- the patient denies having any suicidal and/or homicidal ideations and does not present with any other emotional, behavioral or mental health complaints. Status: Patient is not a senior manager creative services or dependent. Transition of care: patient was not received from another setting of care. 11:19 Acuity: ORALIA Level 3 ms2 11:19 Method Of Arrival: Ambulance ms2 11:25 Presenting complaint:. ms2 11:36 Presenting complaint: per daughter---when she got there pt unable to express self for a ms2 few seconds--seemed to daughter longer she was in the chair the more alert she became---no sickness lately. Triage Assessment: 11:30 General: Appears in no apparent distress, Behavior is cooperative, pleasant, daughtere ms2 with pt. Pain: Denies pain. The patient is triaged at the bedside. See Assessment in Nurses Notes section of ED record. Neurological: Level of Consciousness is awake, alert, obeys commands, Oriented to person, place, time. Respiratory: No deficits noted. Airway is patent Respiratory effort is even, unlabored, Respiratory pattern is regular, symmetrical. GI: Abdomen is non- distended obese. Derm: Skin is pink, warm & dry. Musculoskeletal: Range of motion intact in all extremities. Historical: - Allergies: Levaquin; ropinirole; - Home Meds: 1. propranolol 60 mg Oral tab 1 tab 2 times per day (Last dose: 10/28/2016 06:00) 2. Eliquis 2.5 mg oral tab 1 tab 2 times per day (Last dose: 10/28/2016 06:00) 3. gabapentin 100 mg Oral cap one 2x daily (Last dose: 10/28/2016 06:00) 4. Sertraline 150 mg daily (Last dose: 10/28/2016 06:00) 5. Klor-Con 10 10 mEq Oral TbER 1 tab once daily (Last dose: 10/28/2016 06:00) 6. atorvastatin 10 mg oral tab 1 tab once daily (Last dose: 10/28/2016 06:00) 7. furosemide 40 mg Oral tab 1 tab 2 times per day (Last dose: 10/28/2016 06:00) 8. diclofenac -sodium gel 1%---4x daily to right shoulder 9. mutivitamins one daily (Last dose: 10/28/2016 06:00) 10. vitamins D (Last dose: 10/28/2016 06:00) 11. calcium 12. C-PAP ay HS 13. ventolin inhaler 14. restasis - PMHx: Asthma; atrial flutter; gi bleed; Hypercholesterolemia; Hypertension; neuralgia; Sleep Apnea w/ CPAP; - PSHx: right knee; - Social history: Smoking status: Patient states former smoker of tobacco. No barriers to communication noted, The patient speaks fluent Sudanese. - Family history: Not pertinent. - : The pt / caregiver states he / she is on anticoagulants: Eliquis Home medication list is obtained from the patient. - Exposure Risk Screening:: None identified. Screenin:32 Screening information is obtained from the patient, family members. Fall risk: At risk ms2 due to age, cane and walker outside of apartment. Assistance ADL's: Requires assistance with housework, assistance is provided by cleaning lady once monthly. Abuse/DV Screen: The patient / caregiver reports he/she is: not in a situation that causes fear, pain or injury. Nutritional screening: low NA and fluid restriction. Advance Directives: Currently, there is a health care proxy, daughter- eron finley. There is an active DNR order but there is no copy available at this time. There is no living will. There is an active Power of Event Marketing Specialist, yes --see above. Advance directive information does not know if advance directives have been placed in a prior [facility] medical record. Further advance directive information is declined. home support is adequate. Assessment: 11:31 General: see triage assessment. ms2 12:30 General: Appears in no apparent distress, comfortable, daughter with pt. Neurological: ms2 No deficits noted. Cardiovascular:. Respiratory: No deficits noted. Derm: Skin is pink, warm & dry. 12:55 General: LOOKING AT BACK RECORDS BY ADMISSION PT DOES HAVE A HCP AND LW COMBINED NO ms2 SEPARATE DNR---DAUGHTER AWARE. 13:24 General: resident in to see pt. ms2 14:00 General: Appears in no apparent distress, comfortable, Behavior is cooperative. ms2 Neurological: No deficits noted. Cardiovascular: Rhythm is atrial flutter. Respiratory: No deficits noted. Derm: Skin is pink, warm & dry. 15:36 General: Appears in no apparent distress, comfortable, Behavior is cooperative. Pain: ms2 Denies pain. Neurological: Level of Consciousness is awake, alert, obeys commands. Cardiovascular: Rhythm is atrial flutter. Respiratory: Respiratory effort is even, unlabored. Derm: Skin is. 16:39 Adult Sepsis Screening: The patient does not have new or worsening altered mentation. ms2 Patient's respiratory rate is less than 22. Systolic blood pressure is greater than 100. Patient has a qSOFA score of 0- Negative Sepsis Screen. General: Appears in no apparent distress, comfortable, Behavior is cooperative, pleasant. General: Appears in no apparent distress, comfortable. Pain: Denies pain. Neurological: Level of Consciousness is awake, alert, obeys commands. Cardiovascular: Rhythm is atrial flutter. Respiratory: Airway is patent Respiratory effort is even, unlabored, Respiratory pattern is regular, symmetrical. GI: Abdomen is non- distended obese. Derm: Skin is pink, warm & dry. Musculoskeletal: Range of motion intact in all extremities. Vital Signs: 11:23 BP 148 / 67; Pulse 84; Resp 20 S; Temp 97.7(O); Pulse Ox 95% on R/A; Weight 89.36 kg; ms2 Height 5 ft. (152.40 cm); Pain 0/10; 11:23 BP 112 / 56; Pulse 65; Resp 20 S; Temp 97(T); Pulse Ox 94% on R/A; Pain 0/10; ms2 11:24 BP 148 / 67 (auto/); ms2 11:26 Pulse 62 MON; Resp 20 S; Pulse Ox 93% ; ms2 11:40 BP 141 / 67 (auto/); ms2 11:41 Pulse 68 MON; Resp 20 S; Pulse Ox 95% ; ms2 12:13 BP 154 / 71 Supine (auto/); ms2 12:14 Pulse 68 MON; Resp 20 S; Pulse Ox 93% ; ms2 12:14 BP 129 / 82 Sitting; Pulse 66; Resp 20 S; ms2 12:15 BP 129 / 69 Standing; Pulse 76; Resp 20 S; ms2 12:28 ms2 15:26 BP 104 / 70 (auto/); ms2 15:27 Pulse 68 MON; Resp 20 S; Pulse Ox 93% ; ms2 11:23 Body Mass Index 38.47 (89.36 kg, 152.40 cm) ms2 12:14 pt lightheaded with sitting up ms2 12:28 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 ms2 Vitals: 11:23 Log In Time N/A - ambulance arrival. ms2 Visual Acuity: 11:57 Left Eye Visual acuity 20/50, ; Right Eye Visual acuity 20/30, ; Both Eyes Visual ms2 acuity 20/25; With Lenses; ED Course: 11:17 Patient visited by Gissel Zapata, Turkey Farmer. deg 11:17 Ilya Yates,RN is Primary Nurse. deg 11:17 Patient moved to Waiting deg 11:17 Patient moved to 19 deg 11:19 Patient visited by Ilya Yates RN. ms2 11:23 Triage Initiated ms2 11:34 The patient / caregiver is instructed regarding the plan of care and ED course. Cardiac ms2 monitor on. Pulse ox on. NIBP on. 11:35 Inserted saline lock: 20 gauge in right antecubital area The patient tolerated the ms2 procedure well. No procedures done that require assistance. 11:37 BMP Sent. ttb 11:37 CBC with Diff Sent. ttb 11:57 Patient visited by Ilya Yates,TASHA. ms2 12:11 José Miguel Kathleen FNP is PHCP. ke 12:12 Patient visited by José Miguel Kathleen FNP. ke 12:12 Patient visited by José Miguel Kathleen FNP. ke 12:21 Patient visited by Ilya Yates,TASHA. ms2 12:31 The patient / caregiver is instructed regarding the plan of care and ED course. Cardiac ms2 monitor on. Pulse ox on. NIBP on. 12:31 IV is intact, is free of redness or swelling. ms2 12:31 Troponin Sent. ms2 12:31 CIP Sent. ms2 12:31 PT/INR Sent. ms2 12:51 Patient visited by José Miguel Kathleen FNP. ke 13:00 EKG done. (by ED staff). Reviewed by José Miguel BOLAND. ttb 13:05 NatalioAna Cristina is Hospitalizing Provider. ke 13:07 CT Head Without Contrast Returned. EDMS 13:07 Chest, 1 View Returned. EDMS 13:20 [facility] Payment Agreement was scanned into [employer] and attached to record. mm15 13:24 Patient visited by Ilya Yates RN. ms2 14:00 The patient / caregiver is instructed regarding the plan of care and ED course. Cardiac ms2 monitor on. Pulse ox on. NIBP on. Diet: Tolerated well. 14:00 IV is intact, is free of redness or swelling. ms2 15:37 The patient / caregiver is instructed regarding the plan of care and ED course. dc'd to ms2 go to MRI. 15:37 IV is intact, is free of redness or swelling. ms2 16:40 The patient / caregiver is instructed regarding the plan of care and ED course. Cardiac ms2 monitor on. Pulse ox on. NIBP on. 16:40 IV is intact, is free of redness or swelling. ms2 16:50 T-Sheet-- Draft Copy was scanned into Ru[employer]ure and attached to record. [facility] Point of Care Testing: Blood Glucose: 11:35 Blood Glucose: 118 mg/dL; ttb 11:35 Blood Glucose: 118 mg/dL; ms2 Ranges: Intake: 15:35 PO: 113.00ml (Milk); Total: 113.00ml. ms2 12:14 up to commode to void --required assistance ms2 15:35 up to BR to void and had BM ms2 Output: 12:14 Urine: 300.00ml (Voided); Total: 300.00ml. ms2 12:14 up to commode to void --required assistance ms2 15:35 up to BR to void and had BM ms2 Order Results: Lab Order: CBC with Diff; SPEC'M 10/28/16 11:33 Test: WHITE BLOOD COUNT; Value: 3.7; Range: 4.0-10.0; Abnormal: Below low normal; Units: K/mm3; Status: F Test: RED BLOOD COUNT; Value: 4.24; Range: 4.00-5.40; Units: M/mm3; Status: F Test: HEMOGLOBIN; Value: 13.6; Range: 12.0-16.0; Units: g/dl; Status: F Test: HEMATOCRIT; Value: 41.0; Range: 36.0-47.0; Units: %; Status: F Test: MEAN CORPUSCULAR VOLUME; Value: 96.6; Range: 80.0-96.0; Abnormal: Above high normal; Units: fl; Status: F Test: MEAN CORPUSCULAR HEMOGLOBIN; Value: 32.1; Range: 27.0-33.0; Units: pg; Status: F Test: MEAN CORPUSCULAR HGB CONC; Value: 33.2; Range: 32.0-36.5; Units: g/dl; Status: F Test: RED CELL DISTRIBUTION WIDTH; Value: 15.2; Range: 11.5-14.5; Abnormal: Above high normal; Units: %; Status: F Test: PLATELET COUNT, AUTOMATED; Value: 152; Range: 150-450; Units: k/mm3; Status: F Test: NEUTROPHILS %; Value: 55.4; Range: 36.0-66.0; Units: %; Status: F Test: LYMPH %; Value: 21.0; Range: 24.0-44.0; Abnormal: Below low normal; Units: %; Status: F Test: MONO %; Value: 15.8; Range: 0.0-5.0; Abnormal: Above high normal; Units: %; Status: F Test: EOS %; Value: 1.8; Range: 0.0-3.0; Units: %; Status: F Test: BASO %; Value: 0.3; Range: 0.0-1.0; Units: %; Status: F Test: LARGE UNSTAINED CELL %; Value: 5.7; Range: 0.0-4.0; Abnormal: Above high normal; Units: %; Status: F Test: NEUTROPHILS #; Value: 2.1; Range: 1.8-7.7; Units: K/mm3; Status: F Test: LYMPH #; Value: 1.0; Range: 1.5-4.5; Abnormal: Below low normal; Units: K/mm3; Status: F Test: MONO #; Value: 0.6; Range: 0.0-0.8; Units: K/mm3; Status: F Test: EOS #; Value: 0.1; Range: 0.0-0.50; Units: K/mm3; Status: F Test: BASO #; Value: 0.0; Range: 0.0-0.2; Units: K/mm3; Status: F Test: LARGE UNSTAINED CELL #; Value: 0.2; Range: 0.0-0.4; Units: K/mm3; Status: F Lab Order: [facility]; SPEC'M 10/28/16 11:33 Test: GLUCOSE, FASTING; Value: 113; Range: 83-110; Abnormal: Above high normal; Units: MG/DL; Status: F Test: BLOOD UREA NITROGEN; Value: 31; Range: 7-18; Abnormal: Above high normal; Units: MG/DL; Status: F Test: CREATININE FOR GFR; Value: 1.32; Range: 0.55-1.02; Abnormal: Above high normal; Units: MG/DL; Status: F Test: GLOMERULAR FILTRATION RATE; Value: 40.4; Range: >32; Status: F Test: SODIUM LEVEL; Value: 141; Range: 136-145; Units: MEQ/L; Status: F Test: POTASSIUM SERUM; Value: 4.0; Range: 3.5-5.1; Units: MEQ/L; Status: F Test: CHLORIDE LEVEL; Value: 101; Range: 98-107; Units: MEQ/L; Status: F Test: CARBON DIOXIDE LEVEL; Value: 32; Range: 21-32; Units: MEQ/L; Status: F Test: ANION GAP; Value: 8; Range: 8-16; Units: MEQ/L; Status: F Test: CALCIUM LEVEL; Value: 8.1; Range: 8.8-10.2; Abnormal: Below low normal; Units: MG/DL; Status: F Test Note: ; Units are mL/min/1.73 m2 Chronic Kidney Disease Staging per NKF: Stage I & II GFR >=60 Normal to Mildly Decreased Stage III GFR 30-59 Moderately Decreased Stage IV GFR 15-29 Severely Decreased Stage V GFR <15 Very Little GFR Left ESRD GFR <15 on DISPLAY CARD WRITER Lab Order: Fingerstick Blood Sugar; [facility] 10/28/16 11:24 Test: BEDSIDE GLUCOSE; Value: 118; Range: 83-110; Abnormal: Above high normal; Units: MG/DL; Status: F Test Note: ; RN Notified Lab Order: PT/INR; [facility] 10/28/16 11:33 Test: PROTHROMBIN TIME; Value: 16.2; Range: 12.3-14.5; Abnormal: Above high normal; Units: SECONDS; Status: F Test: INR; Value: 1.29; Status: F Test Note: ; THERAPUTIC HUMAN INR VALUES INDICATIONS NORMAL RANGES PROPHYLAXIS/TREATMENT OF: VENOUS THROMBOSIS 2.0-3.0 PULMONARY EMBOLISM 2.0-3.0 PREVENTION OF SYSTEMIC EMBOLISM FROM: TISSUE HEART VALVES 2.0-3.0 ACUTE MYOCARDIAL INFARCTION 2.0-3.0 VALVULAR HEART DISEASE 2.0-3.0 ATRIAL FIBRILLATION 2.0-3.0 MECHANICAL VALVES(HIGH RISK) 2.5-3.5 RECURRENT MYOCARDIAL INFARCTION 2.5-3.5 Lab Order: CIP; [facility] 10/28/16 11:33 Test: CPK CREATINE PHOSPHOKINASE; Value: 60; Range: 26-192; Units: U/L; Status: F Test: CK-MB VALUE MASS; Value: 1.0; Range: 0.0-3.6; Units: NG/ML; Status: F Test: MB/CK RELATIVE INDEX; Value: 1.66; Range: < OR =4; Status: F Test Note: ; DIAGNOSIS CRITERIA MMB ng/ml Relative Index (RI) NON-AMI < or = 5 N/A REID ZONE > 5 < or = 4 AMI > 5 > 4 Lab Order: Troponin; [facility] 10/28/16 11:33 Test: TROPONIN I; Value: < 0.02; Range: < 0.10; Units: NG/ML; Status: F Test Note: ; Troponin I Reference Interval for PulseOn LOCI: 99th Percentile= 0.00-0.045 ng/ml Risk Stratification: <= 0.10 ng/ml Decreased Risk for Adverse Clinical Events. 0.10-1.50 ng/ml Increased Risk for Adverse Clinical Events. Evaluation of additional criterion and/or repeat testing in 2-6 hours is suggested to rule out myocardial damage. >= 1.50 ng/ml Indicative of Myocardial Injury. Radiology Order: CT Head Without Contrast Test: CT Head Without Contrast REASON FOR EXAMINATION: vision change; Clinical: Visual disturbances.; ; Comparison: 09/18/2015 .; ; Findings:; Age-related atrophy and microvascular ischemic changes are appreciated. The; ventricles and sulci are symmetric. Reid-white differentiation is maintained.; There is no evidence for acute intracranial hemorrhage, mass/mass effect,; pathology or infarction. No extra-axial fluid collection. Calvarium is intact.; Paranasal sinuses and mastoid air cells are clear.; ; Impression:; Age related atrophy and microvascular ischemic changes.; No acute intracranial hemorrhage, infarction, or mass/mass effect.; ; ; Signed by; Nba Langston MD 10/28/2016 12:47 P; Radiology Order: Chest, 1 View Test: Chest, 1 View REASON FOR EXAMINATION: admit; Clinical: cerebrovascular accident .; ; Comparison: 06/02/2016 .; ; Findings:; The mediastinum and cardiac silhouette are stable and within normal limits for; portable technique. The lung enriquez are clear without acute consolidation,; effusion, or pneumothorax. Skeletal structures are intact.; ; Impression:; Normal portable chest x-ray; ; ; Signed by; Nba Langston MD 10/28/2016 12:53 P; Outcome: 13:05 Decision to Hospitalize by Provider. ke 15:38 Discharge Assessment: patient administered narcotics - no. The following High Risk ms2 Discharge criteria are identified: None. 15:39 CT Study completed. ms2 16:40 Admitted to PCU accompanied by nurse, accompanied by tech, via stretcher, on monitor, ms2 with chart. Condition: stable. Property :Personal belongings accompany Pt. 16:45 Patient left the ED. ms2 Signatures: Dispatcher [employer] EDMS Gissel Zapata, Turkey Farmer Unit deg Ilya Yates RN RN ms2 José Miguel Kathleen FNP FNP ke Conner, Teresa, RN RN Gwen Fairbanks mm15 Bisi Choudhury Corrections: (The following items were deleted from the chart) 11:27 11:23 Resp 20bpm; Spontaneous; Temp 97.7F Oral; ms2 ms2 12:25 12:13 BP 154 / 71 Auto; ms2 ms2 12:30 12:21 Urine 300, (Voided), Output Total 300; Note:up to commode to void --required ms2 assistance---pt lightheaded momentarily with standing. ms2 12:30 12:14 BP 129 / 82 Sitting; Pulse 66bpm; Resp 20bpm; Spontaneous; ms2 ms2 16:39 11:23 BP 148 / 67; Pulse 84bpm; Resp 20bpm; Spontaneous; Pulse Ox 95% RA; Temp 97.7F ms2 Oral; 2.27 kg Reported; Height 1 ft. 97 in. Reported; BMI: 0.30; Pain 0/10; ms2 Chart Complete MTDD
--- NOTE | 2016-10-30 17:46 | EDDOCDS ---
Physician Documentation [facility] Name: Gifty Rodriguez Age: 86 yrs Sex: Female : 1930 Arrival Date: 10/28/2016 Time: 11:15 Bed 19 Private MD: Disposition: 10/28/16 13:05 Hospitalization ordered by Ana Cristina Lance for Inpatient Admission. Preliminary diagnosis is Transient cerebral ischemic attack, unspecified. - Bed requested for PCU. - Status is Inpatient Admission. ms2 - Condition is Stable. - Problem is an acute exacerbation. - Symptoms are unchanged. Historical: - Allergies: Levaquin; ropinirole; - Home Meds: 1. propranolol 60 mg Oral tab 1 tab 2 times per day (Last dose: 10/28/2016 06:00) 2. Eliquis 2.5 mg oral tab 1 tab 2 times per day (Last dose: 10/28/2016 06:00) 3. gabapentin 100 mg Oral cap one 2x daily (Last dose: 10/28/2016 06:00) 4. Sertraline 150 mg daily (Last dose: 10/28/2016 06:00) 5. Klor-Con 10 10 mEq Oral TbER 1 tab once daily (Last dose: 10/28/2016 06:00) 6. atorvastatin 10 mg oral tab 1 tab once daily (Last dose: 10/28/2016 06:00) 7. furosemide 40 mg Oral tab 1 tab 2 times per day (Last dose: 10/28/2016 06:00) 8. diclofenac -sodium gel 1%---4x daily to right shoulder 9. mutivitamins one daily (Last dose: 10/28/2016 06:00) 10. vitamins D (Last dose: 10/28/2016 06:00) 11. calcium 12. C-PAP ay HS 13. ventolin inhaler 14. restasis - PMHx: Asthma; atrial flutter; gi bleed; Hypercholesterolemia; Hypertension; neuralgia; Sleep Apnea w/ CPAP; - PSHx: right knee; - Social history: Smoking status: Patient states former smoker of tobacco. No barriers to communication noted, The patient speaks fluent Greek. - Family history: Not pertinent. - : The pt / caregiver states he / she is on anticoagulants: Eliquis Home medication list is obtained from the patient. - Exposure Risk Screening:: None identified. Vital Signs: 10/28 11:23 BP 148 / 67; Pulse 84; Resp 20 S; Temp 97.7(O); Pulse Ox 95% on R/A; Weight 89.36 kg / ms2 197.01 lbs; Height 5 ft. (152.40 cm); Pain 0/10; 11:23 BP 112 / 56; Pulse 65; Resp 20 S; Temp 97(T); Pulse Ox 94% on R/A; Pain 0/10; ms2 11:24 BP 148 / 67 (auto/); ms2 11:26 Pulse 62 MON; Resp 20 S; Pulse Ox 93% ; ms2 11:40 BP 141 / 67 (auto/); ms2 11:41 Pulse 68 MON; Resp 20 S; Pulse Ox 95% ; ms2 12:13 BP 154 / 71 Supine (auto/); ms2 12:14 Pulse 68 MON; Resp 20 S; Pulse Ox 93% ; ms2 12:14 BP 129 / 82 Sitting; Pulse 66; Resp 20 S; ms2 12:15 BP 129 / 69 Standing; Pulse 76; Resp 20 S; ms2 12:28 ms2 15:26 BP 104 / 70 (auto/); ms2 15:27 Pulse 68 MON; Resp 20 S; Pulse Ox 93% ; ms2 11:23 Body Mass Index 38.47 (89.36 kg, 152.40 cm) ms2 12:14 pt lightheaded with sitting up ms2 12:28 [place] aware of vs with sitting , etc. ms2 Visual Acuity: 11:57 Left Eye Visual acuity 20/50, ; Right Eye Visual acuity 20/30, ; Both Eyes Visual ms2 acuity 20/25; With Lenses; MDM: 11:23 Visual Acuity ordered. br1 11:35 IV Saline Lock ordered. br1 11:36 CBC with Diff Ordered. EDMS 11:36 Accucheck ordered. ttb 11:36 BMP Ordered. EDMS 12:14 CBC with Diff Reviewed. ke 12:14 BMP Reviewed. ke 12:14 Fingerstick Blood Sugar Reviewed. ke 12:16 CT Head Without Contrast Ordered. EDMS 12:29 PT/INR Ordered. EDMS 12:29 CIP Ordered. EDMS 12:29 Troponin Ordered. EDMS 12:30 Chest, 1 View Ordered. EDMS 12:30 ECG WITH READING ER PHYS+CARDIAG ordered. EDMS 12:52 Financial registration complete. mm15 13:00 PT/INR Reviewed. ke 13:00 CIP Reviewed. ke 13:00 Troponin Reviewed. ke 13:11 NO ADDED SALT+DIET ordered. EDMS 13:20 [facility] Payment Agreement was scanned into [employer] and attached to record. mm15 13:22 PHYSICAL THERAPY EVAL & TREAT ordered. EDMS 13:23 Admission / Observation Status ordered. EDMS 13:23 ECHOCARD,DOPPLER/COLOR FLOW ordered. EDMS 13:23 OTHER CUSTOM DIETS ordered. EDMS 14:18 MRI Brain without Contrast Ordered. EDMS 14:19 Duplex,carotid (complete) Ordered. EDMS 16:50 T-Sheet-- Draft Copy was scanned into [employer] and attached to record. klr Point of Care Testing: Blood Glucose: 11:35 Blood Glucose: 118 mg/dL; ttb 11:35 Blood Glucose: 118 mg/dL; ms2 Ranges: Signatures: Dispatcher [employer] EDMS Ilya Yates,RN RN ms2 José Miguel Kathleen, ELECTRIC RANGE SERVICER ELECTRIC RANGE SERVICER Bj Almaraz MD MD br1 Concepcion Gama RN RN ttGwen Wayne mm15 Veronica Beckett RN RN kaa Redder, Kathie klr The chart was reviewed and I authenticate all verbal orders and agree with the evaluation and treatment provided.Attachments: 13:20 [facility] Payment Agreement mm15 16:50 T-Sheet-- Draft Copy klr Chart Complete MTDD
--- NOTE | 2016-10-30 17:46 | EDDOCDS ---
Physician Documentation [facility] Name: Gifty Rodriguez Age: 86 yrs Sex: Female : 1930 Arrival Date: 10/28/2016 Time: 11:15 Bed 19 Private MD: Disposition: 10/28/16 13:05 Hospitalization ordered by Ana Cristina Lance for Inpatient Admission. Preliminary diagnosis is Transient cerebral ischemic attack, unspecified. - Bed requested for PCU. - Status is Inpatient Admission. ms2 - Condition is Stable. - Problem is an acute exacerbation. - Symptoms are unchanged. Historical: - Allergies: Levaquin; ropinirole; - Home Meds: 1. propranolol 60 mg Oral tab 1 tab 2 times per day (Last dose: 10/28/2016 06:00) 2. Eliquis 2.5 mg oral tab 1 tab 2 times per day (Last dose: 10/28/2016 06:00) 3. gabapentin 100 mg Oral cap one 2x daily (Last dose: 10/28/2016 06:00) 4. Sertraline 150 mg daily (Last dose: 10/28/2016 06:00) 5. Klor-Con 10 10 mEq Oral TbER 1 tab once daily (Last dose: 10/28/2016 06:00) 6. atorvastatin 10 mg oral tab 1 tab once daily (Last dose: 10/28/2016 06:00) 7. furosemide 40 mg Oral tab 1 tab 2 times per day (Last dose: 10/28/2016 06:00) 8. diclofenac -sodium gel 1%---4x daily to right shoulder 9. mutivitamins one daily (Last dose: 10/28/2016 06:00) 10. vitamins D (Last dose: 10/28/2016 06:00) 11. calcium 12. C-PAP ay HS 13. ventolin inhaler 14. restasis - PMHx: Asthma; atrial flutter; gi bleed; Hypercholesterolemia; Hypertension; neuralgia; Sleep Apnea w/ CPAP; - PSHx: right knee; - Social history: Smoking status: Patient states former smoker of tobacco. No barriers to communication noted, The patient speaks fluent [place]. - Family history: Not pertinent. - : The pt / caregiver states he / she is on anticoagulants: Eliquis Home medication list is obtained from the patient. - Exposure Risk Screening:: None identified. Vital Signs: 10/28 11:23 BP 148 / 67; Pulse 84; Resp 20 S; Temp 97.7(O); Pulse Ox 95% on R/A; Weight 89.36 kg / ms2 197.01 lbs; Height 5 ft. (152.40 cm); Pain 0/10; 11:23 BP 112 / 56; Pulse 65; Resp 20 S; Temp 97(T); Pulse Ox 94% on R/A; Pain 0/10; ms2 11:24 BP 148 / 67 (auto/); ms2 11:26 Pulse 62 MON; Resp 20 S; Pulse Ox 93% ; ms2 11:40 BP 141 / 67 (auto/); ms2 11:41 Pulse 68 MON; Resp 20 S; Pulse Ox 95% ; ms2 12:13 BP 154 / 71 Supine (auto/); ms2 12:14 Pulse 68 MON; Resp 20 S; Pulse Ox 93% ; ms2 12:14 BP 129 / 82 Sitting; Pulse 66; Resp 20 S; ms2 12:15 BP 129 / 69 Standing; Pulse 76; Resp 20 S; ms2 12:28 ms2 15:26 BP 104 / 70 (auto/); ms2 15:27 Pulse 68 MON; Resp 20 S; Pulse Ox 93% ; ms2 11:23 Body Mass Index 38.47 (89.36 kg, 152.40 cm) ms2 12:14 pt lightheaded with sitting up ms2 12:28 nonprofit financial controller aware of vs with sitting , etc. ms2 Visual Acuity: 11:57 Left Eye Visual acuity 20/50, ; Right Eye Visual acuity 20/30, ; Both Eyes Visual ms2 acuity 20/25; With Lenses; MDM: 11:23 Visual Acuity ordered. br1 11:35 IV Saline Lock ordered. br1 11:36 CBC with Diff Ordered. EDMS 11:36 Accucheck ordered. ttb 11:36 BMP Ordered. EDMS 12:14 CBC with Diff Reviewed. ke 12:14 BMP Reviewed. ke 12:14 Fingerstick Blood Sugar Reviewed. ke 12:16 CT Head Without Contrast Ordered. EDMS 12:29 PT/INR Ordered. EDMS 12:29 CIP Ordered. EDMS 12:29 Troponin Ordered. EDMS 12:30 Chest, 1 View Ordered. EDMS 12:30 ECG WITH READING ER PHYS+CARDIAG ordered. EDMS 12:52 Financial registration complete. mm15 13:00 PT/INR Reviewed. ke 13:00 CIP Reviewed. ke 13:00 Troponin Reviewed. ke 13:11 NO ADDED SALT+DIET ordered. EDMS 13:20 [facility] Payment Agreement was scanned into [employer] and attached to record. mm15 13:22 PHYSICAL THERAPY EVAL & TREAT ordered. EDMS 13:23 Admission / Observation Status ordered. EDMS 13:23 ECHOCARD,DOPPLER/COLOR FLOW ordered. EDMS 13:23 OTHER CUSTOM DIETS ordered. EDMS 14:18 MRI Brain without Contrast Ordered. EDMS 14:19 Duplex,carotid (complete) Ordered. EDMS 16:50 T-Sheet-- Draft Copy was scanned into [employer] and attached to record. klr Point of Care Testing: Blood Glucose: 11:35 Blood Glucose: 118 mg/dL; ttb 11:35 Blood Glucose: 118 mg/dL; ms2 Ranges: Signatures: Dispatcher [employer] EDMS Ilya Yates,RN RN ms2 José Miguel Kathleen, DIRECTOR FOR [employer] DIRECTOR FOR [employer] Bj Almaraz MD MD br1 Concepcion Gama RN RN ttGwen Wayne mm15 Veronica Beckett RN RN kaa Redder, Kathie klr The chart was reviewed and I authenticate all verbal orders and agree with the evaluation and treatment provided.Attachments: 13:20 [facility] Payment Agreement mm15 16:50 T-Sheet-- Draft Copy klr Chart Complete MTDD
--- NOTE | 2016-10-31 05:44 | ECHO ---
DATE OF PROCEDURE: 10/30/2016 AGE: 86 GENDER: Female REFERRING PHYSICIAN: Dr. Alex Farah. HEIGHT: 60 inches. WEIGHT: 207 pounds. BODY SURFACE AREA: 1.89 sq m. INPATIENT: PCU Room 3216 INDICATION: Syncope. MEASUREMENTS: 2D MEASUREMENTS: RV - 4.4 cm LV- 4.2 cm Septum - 1.2 cm Posterior wall - 1.2 cm Aortic root: 3.6 cm LA - 4.7 cm LVEF - 75% DOPPLER MEASUREMENTS: AV - 1.4 m/s LVOT - 0.96 m/s LVOT diameter - 1.7 cm MV-E: 110 Early mitral deacceleration time 190 ms E-prime - 8 E/E prime ratio 14 PV - 0.7 m/s Pulmonary artery acceleration time - 63 ms RVSP - 58 mmHg IVC - 2.0 cm COMMENTS: Underlying atrial fibrillation with controlled ventricular response. No intraventricular conduction disturbance. Moderately dilated left atrium but normal left ventricular size. Mildly dilated right ventricle and moderately dilated right atrium. LV wall thickness was mildly increased symmetrically. On real-time imaging from the parasternal and apical projections, wall motion was symmetrical and hyperkinetic. Moderately thickened mitral annular calcification and slight leaflet thickening but normal leaflet excursion with no posterior systolic buckling. Three equal size aortic cusps with marginally thickened cusp edges but adequate cusp separation. Normal aortic root size. No apparent intracardiac mass. Color flow Doppler study taken from the parasternal and apical projection showed mild to moderate mitral and moderately severe tricuspid but no aortic insufficiency. Guided continuous wave Doppler of her aortic valve showed a normal peak systolic velocity against LV outflow tract obstruction. Pulsed and continuous wave Doppler of her LV inflow tract taken from the apical four-chamber projection showed normal diastolic filling velocities against mitral stenosis. As we would expect with atrial fibrillation, there was only early diastolic/passive filling. Her current estimated mean left atrial pressure was only slightly increased. Pulsed and continuous wave Doppler of her pulmonary trunk showed a normal peak systolic velocity against RV outflow tract obstruction. Her pulmonary artery acceleration time was significantly abbreviated consistent with an elevated pulmonary vascular resistance. Guided continuous wave Doppler of her tricuspid valve allowed our estimation of her right ventricular systolic pressure (moderately severely increased). Her inferior vena cava was of normal size to slightly dilated with adequate respiratory collapse against a significant degree of central venous pressure elevation or right heart failure at this time. CONCLUSIONS: Borderline concentric left ventricle hypertrophy with hyperkinetic wall motion. Moderately dilated left atrium with current estimated mean left atrial pressure only mildly elevated. Mildly dilated right ventricle with Doppler evidence of moderately severe pulmonary hypertension. Moderately dilated right atrium with IVC upper limits of normal with adequate respiratory collapse against right heart failure at this time. Subtle aortic valvular sclerosis without functional abnormality. Moderate mitral annular calcification with mild to moderate insufficiency. Normal appearing tricuspid valvular apparatus with moderately severe insufficiency.
== END 2016-10-30 13:00 | disposition home or self-care (01) ==
LOC: M ED 11:15 → M ED INP 13:17 → M PCU 16:50
PROVIDERS: ADMIT Internal Medicine Nephrology; ATTEND Internal Medicine
DX: R55 Syncope and collapse (principal); I48.91 Unspecified atrial fibrillation; I27.89 Other specified pulmonary heart diseases; Z79.02 Long term (current) use of antithrombotics/antiplatelets; E78.5 Hyperlipidemia, unspecified; J45.909 Unspecified asthma, uncomplicated; G60.9 Hereditary and idiopathic neuropathy, unspecified; F41.9 Anxiety disorder, unspecified; F32.9 Major depressive disorder, single episode, unspecified; I10 Essential (primary) hypertension; Z79.899 Other long term (current) drug therapy; G47.30 Sleep apnea, unspecified; Z87.891 Personal history of nicotine dependence; Z88.1 Allergy status to other antibiotic agents
CPT/HCPCS: 36415; 70450; 70551; 71010; 80048; 82550; 82553; 84484; 85025; 85610; 93005; 93306; 93880; 97162; 99285; G0378; G8978; G8979; G8980

== ENCOUNTER → 2017-05-21 | Outpatient (REF) | payer MEDICARE ==
[~2017-05-21] MED LIST changes: +CALC600T57 PO; +ELIQ2.5T PO; +POTA10CA PO; -PROA1AER INH; +PROAAER10 INH; +PROP80CA PO; +TRAZ-136 PO; -TRAZ100T4 PO
[2017-05-21 16:21] LABS: BASO % 0.5 % (0.0-1.0); EOS # 0.1 K/mm3 (0.0-0.50); EOS % 1.3 % (0.0-3.0); LARGE UNSTAINED CELL # 0.3 K/mm3 (0.0-0.4); LARGE UNSTAINED CELL % 5.8 % (0.0-4.0); LYMPH # 1.3 K/mm3 (1.5-4.5); MEAN CORPUSCULAR HEMOGLOBIN 32.5 pg (27.0-33.0); MEAN CORPUSCULAR VOLUME 98.2 fl (80.0-96.0); MONO # 0.7 K/mm3 (0.0-0.8); MONO % 15.3 % (0.0-5.0); NEUTROPHILS # 2.5 K/mm3 (1.8-7.7); NEUTROPHILS % 55.1 % (36.0-66.0); PLATELET COUNT, AUTOMATED 156 k/mm3 (150-450); RED CELL DISTRIBUTION WIDTH 15.3 % (11.5-14.5); WHITE BLOOD COUNT 4.6 K/mm3 (4.0-10.0)
[2017-05-21 16:26] LABS: ALBUMIN 4.1 GM/DL (3.2-5.2); ALBUMIN/GLOBULIN RATIO 1.17 (1.00-1.93); BILIRUBIN,TOTAL 0.6 MG/DL (0.2-1.0); CREATININE FOR GFR 1.46 MG/DL (0.55-1.02); POTASSIUM SERUM 4.3 MEQ/L (3.5-5.1); TOTAL PROTEIN 7.6 GM/DL (6.4-8.2)
== END ==
LOC: M SFHCSACK 09:23
PROVIDERS: ATTEND Physician Assistant
DX: I10 Essential (primary) hypertension (principal); E78.5 Hyperlipidemia, unspecified; Z13.21 Encounter for screening for nutritional disorder; J44.9 Chronic obstructive pulmonary disease, unspecified; F32.9 Major depressive disorder, single episode, unspecified

== ENCOUNTER → 2017-10-15 | Outpatient (REF) | payer MEDICARE ==
[2017-10-15 14:34] LABS: BASO % 0.2 % (0.0-1.0); HEMATOCRIT 47.1 % (36.0-47.0); HEMOGLOBIN 14.8 g/dl (12.0-16.0); IMMATURE GRANULOCYTE % 2.5 % (0-3.0); LYMPH # 1.1 10^3/uL (1.5-4.5); LYMPH % 20.7 % (24.0-44.0); MEAN CORPUSCULAR HEMOGLOBIN 31.4 pg (27.0-33.0); MEAN CORPUSCULAR HGB CONC 31.4 g/dl (32.0-36.5); MONO % 20.1 % (0.0-5.0); NEUTROPHILS # 2.9 10^3/uL (1.8-7.7); NEUTROPHILS % 56.5 % (36.0-66.0); PLATELET COUNT, AUTOMATED 191 10^3/uL (150-450); RED BLOOD COUNT 4.71 10^6/uL (4.00-5.40); RED CELL DISTRIBUTION WIDTH 15.9 % (11.5-14.5); WHITE BLOOD COUNT 5.1 10^3/uL (4.0-10.0)
[2017-10-15 14:50] LABS: TOTAL 25(OH) VITAMIN D 14.2 NG/ML (30.0-100.0)
[2017-10-15 15:15] LABS: ALBUMIN 4.3 GM/DL (3.2-5.2); ALBUMIN/GLOBULIN RATIO 1.26 (1.00-1.93); ALKALINE PHOSPHATASE 81 U/L (45-117); ALT/SGPT 30 U/L (12-78); ANION GAP 7 MEQ/L (8-16); AST/SGOT 26 U/L (7-37); BILIRUBIN,TOTAL 0.6 MG/DL (0.2-1.0); BLOOD UREA NITROGEN 42 MG/DL (7-18); CALCIUM LEVEL 8.7 MG/DL (8.8-10.2); CARBON DIOXIDE LEVEL 33 MEQ/L (21-32); CHLORIDE LEVEL 103 MEQ/L (98-107); CREATININE FOR GFR 1.61 MG/DL (0.55-1.30); GLOMERULAR FILTRATION RATE 32.1 (>32); GLUCOSE, FASTING 100 MG/DL (70-100); POTASSIUM SERUM 4.1 MEQ/L (3.5-5.1); SODIUM LEVEL 143 MEQ/L (136-145); TOTAL PROTEIN 7.7 GM/DL (6.4-8.2)
== END ==
LOC: M SFHCSACK 09:36
DX: I10 Essential (primary) hypertension (principal); E87.6 Hypokalemia; F32.9 Major depressive disorder, single episode, unspecified; E78.5 Hyperlipidemia, unspecified; J44.9 Chronic obstructive pulmonary disease, unspecified; E55.9 Vitamin D deficiency, unspecified
CPT/HCPCS: 80053

== ENCOUNTER → 2018-05-29 | Outpatient (REF) | payer MEDICARE ==
[2018-05-29 14:14] LABS: BASO % 0.4 % (0.0-1.0); HEMATOCRIT 53.1 % (36.0-47.0); LYMPH # 1.3 10^3/uL (1.5-4.5); MEAN CORPUSCULAR HEMOGLOBIN 31.9 pg (27.0-33.0); MEAN CORPUSCULAR VOLUME 99.6 fl (80.0-96.0); MONO % 19.3 % (0.0-5.0); NEUTROPHILS # 2.8 10^3/uL (1.8-7.7); NEUTROPHILS % 54.3 % (36.0-66.0); PLATELET COUNT, AUTOMATED 167 10^3/uL (150-450); RED BLOOD COUNT 5.33 10^6/uL (4.00-5.40); RED CELL DISTRIBUTION WIDTH 16.7 % (11.5-14.5); WHITE BLOOD COUNT 5.1 10^3/uL (4.0-10.0)
[2018-05-29 15:19] LABS: TOTAL 25(OH) VITAMIN D 83.4 NG/ML (30.0-100.0)
[2018-05-29 15:22] LABS: ALBUMIN 4.3 GM/DL (3.2-5.2); ALBUMIN/GLOBULIN RATIO 1.39 (1.00-1.93); ALKALINE PHOSPHATASE 64 U/L (45-117); ALT/SGPT 26 U/L (12-78); ANION GAP 10 MEQ/L (8-16); AST/SGOT 27 U/L (7-37); BILIRUBIN,TOTAL 0.6 MG/DL (0.2-1.0); BLOOD UREA NITROGEN 46 MG/DL (7-18); CALCIUM LEVEL 8.9 MG/DL (8.8-10.2); CARBON DIOXIDE LEVEL 28 MEQ/L (21-32); CHLORIDE LEVEL 104 MEQ/L (98-107); CREATININE FOR GFR 1.81 MG/DL (0.55-1.30); FREE T4 0.81 NG/DL (0.76-1.46); GLUCOSE, FASTING 114 MG/DL (70-100); POTASSIUM SERUM 5.6 MEQ/L (3.5-5.1); SODIUM LEVEL 142 MEQ/L (136-145); THYROID STIMULATING HORMONE 0.496 uIU/ML (0.358-3.740); TOTAL PROTEIN 7.4 GM/DL (6.4-8.2)
== END ==
LOC: M SFHCSACK 09:36
DX: J30.9 Allergic rhinitis, unspecified (principal); E87.6 Hypokalemia; E55.9 Vitamin D deficiency, unspecified; Z13.29 Encounter for screening for other suspected endocrine disorder; M48.061 Spinal stenosis, lumbar region without neurogenic claudication; M48.04 Spinal stenosis, thoracic region; M47.814 Spondylosis without myelopathy or radiculopathy, thoracic region; M51.26 Other intervertebral disc displacement, lumbar region; I10 Essential (primary) hypertension; E78.5 Hyperlipidemia, unspecified; F32.9 Major depressive disorder, single episode, unspecified; G25.0 Essential tremor; G47.33 Obstructive sleep apnea (adult) (pediatric); L25.9 Unspecified contact dermatitis, unspecified cause
CPT/HCPCS: 84443